=== PATIENT | female | born 1970 | race Caucasian/White ===

== ENCOUNTER 2021-06-23 13:30 | Emergency (ER) | payer MEDICAID, OTHER ==
[2021-06-23 13:47] VITALS: BP 182/111
[2021-06-23] MEDS ORDERED: BUFFERED LIDOCAINE 10 ML SYRINGE SUBQ STA (13:47)
--- NOTE | 2021-06-23 13:48 | ED Physician Documentation ---
PD HPI HEADACHE - Stated complaint Stated Complaint: R EAR PX - Chief complaint Chief Complaint: Heent - History obtained from History obtained from: Patient - Additional information Additional information: Longstanding abscess in an old piercing inside of the right ear that has been worse over the last few days causing her to lose sleep. She is already on ciprofloxacin for this, but despite seeing several physicians no one has drained it. Review of Systems Constitutional: denies: Fever, Chills Ears: reports: Ear pain, Drainage/discharge Nose: reports: Reviewed and negative PD PAST MEDICAL HISTORY - Allergies Allergies/Adverse Reactions: Allergies Allergy/AdvReac Type Severity Reaction Status Date / Time acetaminophen [From Vicodin] Allergy Hives Verified 06/23/21 13:47 hydrocodone [From Vicodin] Allergy Hives Verified 06/23/21 13:47 PD ED PE NORMAL - Vitals Vital signs reviewed: Yes - General General: Alert and oriented X 3, No acute distress - HEENT HEENT: PERRL, EOMI - Neck Neck: Supple, no meningeal sign, No bony TTP - Neuro Neuro: Alert and oriented X 3, Normal speech PD ED PE EXPANDED - HEENT HEENT Visual: 1 - abscess (1cm around) Results - Vitals Vitals: Vital Signs - 24 hr 06/23/21 13:44 Temperature 36.1 C L Heart Rate 76 Respiratory 16 Rate Blood Pressure 182/111 H O2 Saturation 95 Oxygen O2 Source Room air Procedures - Abscess I&D (location) R ear Preparation: Lidocaine 1% (Auricular block with good anesthesia), With epi Incision: Incised with scalpel, Purulent drainage (Consistent with sebaceous material), Loculations broken Other: Pt tolerated well, Dressing applied Departure - Departure Disposition: 01 Home, Self Care Clinical Impression: Sebaceous cyst of ear Condition: Good Record reviewed to determine appropriate education?: Yes Instructions: ED Cyst Sebaceous Infec IandD Follow-Up: Omer Rasheed DDS [Provider Admit Priv/Credential] - Within 1 week Comments: As discussed, you have a sebaceous cyst inside your right ear from prior piercing, it is likely this will continue to recur despite the drainage today unless you have a wide excision when not inflamed. The facial surgeon listed on this form could probably do that for you, talk with your doctor about a formal referral. Continue the ciprofloxacin that you are taking. Return for new or worsening symptoms.
[2021-06-23] MEDS ORDERED: LIDOCAINE 1%-EPI 1:100000 20 ML MDV SUBQ STA (13:53)
== END 2021-06-23 14:35 | disposition home or self-care (01) ==
LOC: ED 13:30
DX: L72.3 Sebaceous cyst (principal)
CPT/HCPCS: 20550; 69000

== ENCOUNTER 2023-08-31 17:44 | Outpatient (CLI) | payer MEDICAID | END 2023-08-31 17:45 | disposition critical access hospital (66) | LOC: EMS 17:44 | DX: R53.1 Weakness (principal); R41.82 Altered mental status, unspecified | CPT/HCPCS: A0425; A0429; A0999 ==

== ENCOUNTER 2023-08-31 18:03 | Emergency (ER) | payer MEDICAID ==
--- NOTE | 2023-08-31 18:16 | ED Physician Documentation ---
History of Present Illness - Stated complaint Stated Complaint: AMS - History obtained from History obtained from: Patient, EMS - Additonal information Additional information: 53-year-old woman with history of seizure disorder and diabetes presents by ambulance. She went to the store today and when she tried to get out of the car when she was feeling generally weak, and then went into the store and had a fall without injury and was altered for a time but better now. There was no reported seizure activity. She says she did not take her routine meds this morning and she thinks that is why this happened. Blood sugar prehospital was 177 which she says is "low for her." PD PAST MEDICAL HISTORY - Present Medications Home Medications: Ambulatory Orders Medication Instructions Recorded Confirmed Amlodipine Besylate [Norvasc] 2.5 mg PO DAILY 08/31/23 08/31/23 Atorvastatin [Lipitor] 20 mg PO QPM 08/31/23 08/31/23 Budesonide/Formoterol Fumarate 2 puffs IH DAILY 08/31/23 08/31/23 [Breyna 160-4.5 Mcg Inhaler] Gabapentin [Neurontin] 600 mg PO HS 08/31/23 08/31/23 Insulin Aspart [NovoLOG] 20 unit SUBQ BID 08/31/23 08/31/23 Levetiracetam [Keppra] 750 mg PO BID 08/31/23 08/31/23 Lisinopril [Zestril] 40 mg PO DAILY 08/31/23 08/31/23 Progesterone, Micronized 100 mg PO HS 08/31/23 08/31/23 [Prometrium] Propranolol [Inderal] 10 mg PO DAILY 08/31/23 08/31/23 Venlafaxine ER [Effexor ER] 75 mg PO DAILY 08/31/23 08/31/23 glyBURIDE [Glyburide] 5 mg PO DAILY 08/31/23 08/31/23 metFORMIN [Glucophage] 500 mg PO BIDWM 08/31/23 08/31/23 - Allergies Allergies/Adverse Reactions: Allergies Allergy/AdvReac Type Severity Reaction Status Date / Time acetaminophen [From Vicodin] Allergy Hives Verified 08/31/23 18:21 hydrocodone [From Vicodin] Allergy Hives Verified 08/31/23 18:21 PD ED PE NORMAL - Vitals Vital signs reviewed: Yes - General General: Alert and oriented X 3, No acute distress - HEENT HEENT: PERRL - Neck Neck: Supple, no meningeal sign, No bony TTP - Cardiac Cardiac: RRR, No murmur - Respiratory Respiratory: No respiratory distress, Clear bilaterally - Abdomen Abdomen: Non tender - Neuro Neuro: Alert and oriented X 3, guide dog trainer 2-12 intact Eye Opening: Spontaneous Motor: Obeys Commands Verbal: Oriented GCS Score: 15 Results - Vitals Vitals: Vital Signs - 24 hr 08/31/23 18:16 Temperature 36.7 C Heart Rate 97 Respiratory 16 Rate Blood Pressure 169/101 H O2 Saturation 99 Oxygen O2 Source Room air - EKG (time done) 1829 EKG releavant findings:: EKG personally interpreted by author of this note. Relevant findings are: Rate: Rate (enter#) (95) Rhythm: NSR [place]: Normal Intervals: Normal ND QRS: Low voltage Ischemia: Normal ST segments - Labs Labs: Laboratory Tests 08/31/23 08/31/23 08/31/23 18:27 18:39 18:39 WBC 4.6 L RBC 4.40 Hgb 12.9 Hct 39.3 MCV 89.3 MCH 29.3 MCHC 32.8 RDW 14.1 Plt Count 146 MPV 8.8 Neut # (Auto) 2.7 Lymph # (Auto) 1.2 L [place] # (Auto) 0.4 Eos # (Auto) 0.3 Baso # (Auto) 0.0 Absolute Nucleated RBC 0.00 Nucleated RBC % 0.0 Sodium 134 L Potassium 5.1 H Chloride 105 Carbon Dioxide 21 Anion Gap 8.0 BUN 45 H Creatinine 2.0 H Estimated GFR (MDRD) 26 L Glucose 194 H Calcium 9.6 Magnesium 2.3 Total Bilirubin 0.4 AST 25 ALT 21 Alkaline Phosphatase 63 Total Protein 7.4 Albumin 3.7 Globulin 3.7 Albumin/Globulin Ratio 1.0 Urine Color YELLOW Urine Clarity CLEAR Urine pH 6.0 Ur Specific [place] 1.025 Urine Protein >=300 H Urine Glucose (UA) >=1000 H Urine Ketones NEGATIVE Urine Occult Blood TRACE-INTA Urine Nitrite NEGATIVE Urine Bilirubin NEGATIVE Urine Urobilinogen 0.2 (NORMAL) Ur Leukocyte Esterase NEGATIVE Urine RBC 11-25 H Urine WBC >25 H Urine WBC Clumps PRESENT Ur Squamous Epith Cells MANY Squamous H Urine Bacteria Many H Ur Microscopic Review INDICATED Urine Culture Comments NOT INDICATED Urine Opiates Screen NEGATIVE Ur Buprenorphine Scrn NEGATIVE Ur Oxycodone Screen POSITIVE H Urine Methadone Screen NEGATIVE Ur Barbiturates Screen NEGATIVE Ur Tricyclics Screen NEGATIVE Ur Phencyclidine Scrn NEGATIVE Ur Amphetamine Screen NEGATIVE U Methamphetamines Scrn NEGATIVE U Benzodiazepines Scrn POSITIVE H Urine Cocaine Screen NEGATIVE U Cannabinoids Screen NEGATIVE Ur Drug Screen Comment CUTOFF CONC BELOW: PD Medical Decision Making - ED course ED course: 53-year-old woman with history of diabetes, seizure disorder, depression and anxiety presents with resolving weakness and altered mental status today. She appears well and not altered here. Her pharmacy list was audited and I do wonder if she is the victim of polypharmacy, her prescribed psychoactive medications include venlafaxine, propranolol, Keppra, gabapentin, Xanax, and oxycodone. Workup in the emergency department demonstrated an unremarkable CBC, talk screen positive for oxycodone and benzodiazepines, urinalysis was contaminated but she has no symptoms of UTI. Otherwise her CMP was notable for renal insufficiency. This was discussed with her she states these values are chronic. Departure - Departure Disposition: 01 Home, Self Care Clinical Impression: Renal insufficiency Altered mental status Qualifiers: Altered mental status type: delirium Qualified Code(s): R41.0 - Disorientation, unspecified Condition: Good Record reviewed to determine appropriate education?: Yes Comments: The cause of your altered mental status at the store earlier is not clear. You are on quite a few medications that may affect your thinking and brain. In fact you are on so many of these medications, specifically gabapentin, Keppra, oxycodone, Xanax, propranolol, and venlafaxine, that it is not unreasonable for 1 to wonder if that combined with your poor renal function and poor excretion of these drugs might cause you to have some level of transient confusion. I do want you to follow-up with your primary care physician and talk about "polypharmacy." To see if any of these medications you can come off of. Call your doctor to arrange a follow-up appointment, make the next available appointment. In the interim, return anytime if worse or if new symptoms develop.
[2023-08-31 18:32] LABS: BILIRUBIN,URINE NEGATIVE (NEGATIVE); GLUCOSE, URINE (UA) >=1000 mg/dL (NEGATIVE); KETONES,URINE (UA) NEGATIVE (NEGATIVE); LEUKOCYTE ESTERASE, URINE NEGATIVE (NEGATIVE); NITRITE,URINE NEGATIVE (NEGATIVE); OCCULT BLOOD,URINE TRACE-INTA (NEGATIVE); PROTEIN,URINE >=300 mg/dL (NEGATIVE); UROBILINOGEN,URINE 0.2 (NORMAL) E.U./dL (NORMAL)
[2023-08-31 18:42] LABS: CLARITY,URINE CLEAR (CLEAR)
[2023-08-31 18:43] LABS: BASOPHILS % (AUTO) 0.7 %; EOSINOPHILS # (AUTO) 0.3 10^3/uL (0.0-0.7); EOSINOPHILS % (AUTO) 6.1 %; HCT - HEMATOCRIT 39.3 % (37.0-47.0); HGB - HEMOGLOBIN 12.9 g/dL (12.0-16.0); LYMPHOCYTES # (AUTO) 1.2 10^3/uL (1.5-3.5); LYMPHOCYTES % (AUTO) 25.8 %; MEAN CORPUSCULAR HEMOGLOBIN 29.3 pg (27.0-31.0); MEAN CORPUSCULAR HGB CONC 32.8 g/dL (32.0-36.0); MEAN CORPUSCULAR VOLUME 89.3 fL (81.0-99.0); MEAN PLATELET VOLUME 8.8 fL (7.9-10.8); MONOCYTES # (AUTO) 0.4 10^3/uL (0.0-1.0); NEUTROPHILS # (AUTO) 2.7 10^3/uL (1.5-6.6); NEUTROPHILS % (AUTO) 57.9 %; PLT - PLATELET COUNT 146 10^3/uL (130-450); RED CELL DISTRIBUTION WIDTH 14.1 % (12.0-15.0); WHITE BLOOD COUNT 4.6 x10^3/uL (4.8-10.8)
[2023-08-31 18:43] LABS: BACTERIA,URINE Many /HPF (None Seen); SQUAMOUS EPITHELIAL CELL,UR MANY Squamous (<= Few); WBC CLUMPS,URINE PRESENT; WBC,URINE >25 /HPF (0-5)
[2023-08-31 18:44] LABS: AMPHETAMINE SCREEN,URINE NEGATIVE (NEGATIVE); BARBITURATE SCREEN,UR NEGATIVE (NEGATIVE); BENZODIAZEPINES SCREEN, URINE POSITIVE (NEGATIVE); BUPRENORPHINE SCREEN, URINE NEGATIVE (NEGATIVE); COCAINE SCREEN URINE NEGATIVE (NEGATIVE); METHADONE SCREEN, URINE NEGATIVE (NEGATIVE); METHAMPHETAMINES SCREEN, URINE NEGATIVE (NEGATIVE); OPIATE SCREEN, URINE NEGATIVE (NEGATIVE); OXYCODONE SCREEN, URINE POSITIVE (NEGATIVE); THC CANNABINOID SCREEN, URINE NEGATIVE (NEGATIVE); TRICYCLIC ANTIDEPRESSANT,URINE NEGATIVE (NEGATIVE)
[2023-08-31 19:00] LABS: ALBUMIN 3.7 g/dL (3.2-5.5); BILIRUBIN,TOTAL 0.4 mg/dL (0.2-1.0); CALCIUM 9.6 mg/dL (8.5-10.3); MAGNESIUM 2.3 mg/dL (1.7-2.3); POTASSIUM 5.1 mmol/L (3.5-4.5); TOTAL PROTEIN 7.4 g/dL (6.4-8.9)
[2023-08-31 19:29] VITALS: BP 147/95; O2SAT 95
== END 2023-08-31 19:25 | disposition home or self-care (01) ==
LOC: EDUNIT# → ED 18:03
DX: N28.9 Disorder of kidney and ureter, unspecified (principal); R41.0 Disorientation, unspecified; G40.909 Epilepsy, unspecified, not intractable, without status epilepticus; E11.9 Type 2 diabetes mellitus without complications; Z79.4 Long term (current) use of insulin; Z79.84 Long term (current) use of oral hypoglycemic drugs; Z79.899 Other long term (current) drug therapy; F41.8 Other specified anxiety disorders
CPT/HCPCS: 36415; 80053; 80306; 81001; 81003; 83735; 85025; 87086; 93005; 99283; 99284